=== PATIENT | male | born 1995 | race American Indian/Alaskan Native ===

== ENCOUNTER 2017-06-15 17:00 | Emergency (ER) | payer BC, MEDICAID ==
[2017-06-15 18:20] VITALS: BP 160/101
[2017-06-15 19:09] LABS: Basophils % (Auto) 0.5 % (0.0-1.8); Eosinophils % (Auto) 1.2 % (0.0-4.3); Hematocrit 42.2 % (35.5-45.6); Hemoglobin 14.3 gm/dl (11.8-15.2); Mean Corpuscular HGB Conc 34 % (32-34); Mean Corpuscular Hemoglobin 32 pg (28-32); Mean Corpuscular Volume 93 fl (84-94); Platelet Count 320 K/mm3 (140-440); Red Blood Count 4.55 M/mm3 (3.65-5.03); Red Cell Distribution Width 13.4 % (13.2-15.2); White Blood Count 7.7 K/mm3 (4.5-11.0)
[2017-06-15 19:18] LABS: Urine Drugs of Abuse Note Disclamer
[2017-06-15 19:25] LABS: Anion Gap 21 mmol/L; BUN/Creatinine Ratio 6.36; Blood Urea Nitrogen 7 mg/dL (9-20); Calcium 9.2 mg/dL (8.4-10.2); Carbon Dioxide 25 mmol/L (22-30); Chloride 95.7 mmol/L (98-107); Glucose 78 mg/dL (75-100); Potassium 4.3 mmol/L (3.6-5.0); Sodium 137 mmol/L (137-145)
[2017-06-15 19:32] LABS: Bilirubin,Urine NEG (Negative); Blood,Urine SM (Negative); Ketones,Urine NEG (Negative); Leukocyte Esterase,Urine NEG (Negative); Nitrite,Urine NEG (Negative); Protein,Urine <15 mg/dL mg/dL (Negative); Urobilinogen,Urine < 2.0 mg/dL (<2.0); WBC,Urine < 1.0 /HPF (0.0-6.0)
--- NOTE | 2017-06-15 21:16 | Emergency Department Report ---
HPI - General Chief Complaint: Psych Time Seen by Provider: 06/15/17 20:35 - HPI HPI: This is a 22-year-old Afro-[place]amb[place]ian male presents to the emergency department with his mother with the concern for an exacerbation of his schizoaffective disorder and/or bipolar disorder. The patient has been having some paranoia. The family had to take away his iPhone or access to social media as the patient was fantasizing about interactions with people that he does not know or remotely knows and is having paranoia that they are trying to harm him. He says he does not have any homicidal ideations but did want to get a bat or a gun to defend himself and his family if necessary. He denies any suicidal ideations. He has been hearing voices but denies any visual hallucinations. Patient has been compliant with his medications. He has a psychiatrist, Dr sidhu, and has an appointment on Sunday. He is due to get his next Invega. He and his mother spent all day and [place] trying to get admitted but they said that he did not meet criteria. Mom is working on getting him a "daycare" program while she is at work and she feels that his symptoms are exacerbated when he is left at home alone. ED Past Medical Hx - Past Medical History Hx Psychiatric Treatment: Yes (SCHIZOAFFECTIVE DISORDER / BIPOLAR) Additional medical history: OBESITY - Surgical History Past Surgical History?: No - Social History Smoking Status: Never Smoker Substance Use Type: None - Medications Home Medications: Home Medications Medication Instructions Recorded Confirmed Last Taken Type Paliperidone Palmitate [Invega 156 mg IM QMONTH 06/15/17 06/15/17 1 Month Ago History Sustenna] Propranolol HCl 20 mg PO BID 06/15/17 06/15/17 1 Day Ago History Valproic Acid (As Sodium Salt) 1,000 mg PO QHS 06/15/17 06/15/17 1 Day Ago History [Depakene] Valproic Acid (As Sodium Salt) 250 mg PO DAILY 06/15/17 06/15/17 1 Day Ago History [Depakene] Ziprasidone HCl [Geodon] 80 mg PO QHS 06/15/17 06/15/17 1 Day Ago History clonazePAM [Klonopin] 1 mg PO QHS 06/15/17 06/15/17 1 Day Ago History ED Review of Systems ROS: Stated complaint: NEED INVEGA SYSTENNA 156MS Other details as noted in HPI Comment: All other systems reviewed and negative Constitutional: denies: chills, fever Eyes: denies: eye pain, eye discharge, vision change Respiratory: denies: cough, shortness of breath, wheezing Cardiovascular: denies: chest pain, palpitations Gastrointestinal: denies: abdominal pain, nausea, diarrhea Genitourinary: denies: urgency, dysuria Musculoskeletal: denies: back pain, joint swelling, arthralgia Skin: denies: rash, lesions Neurological: denies: headache, weakness, paresthesias Psychiatric: auditory hallucinations. denies: visual hallucinations, homicidal thoughts, suicidal thoughts Physical Exam - Physical Exam Vital Signs: Vital Signs 06/15/17 18:12 Temperature 98.3 F Pulse Rate 91 H Respiratory 18 Rate Blood Pressure 160/101 O2 Sat by Pulse 99 Oximetry Physical Exam: GENERAL: The patient is well-developed well-nourished. HEENT: Normocephalic. Atraumatic. Extraocular motions are intact. Patient has moist mucous membranes. Pupils equal reactive to light bilaterally. NECK: Supple. Trachea is midline. CHEST/LUNGS: Clear to auscultation. There is no respiratory distress noted. HEART/CARDIOVASCULAR: Regular. There is no tachycardia. There is no gallop rub or murmur. ABDOMEN: Abdomen is soft, nontender. Patient has normal bowel sounds. There is no abdominal distention. SKIN: Skin is warm and dry. NEURO: The patient is awake, alert. The patient is cooperative. The patient has no focal neurologic deficits. The patient has normal speech. MUSCULOSKELETAL: There is no tenderness or deformity. There is no limitation range of motion. There is no evidence of acute injury. PSYCH: Patient has a flat affect. ED Course Vital Signs 06/15/17 18:12 Temperature 98.3 F Pulse Rate 91 H Respiratory 18 Rate Blood Pressure 160/101 O2 Sat by Pulse 99 Oximetry ED Medical Decision Making - Lab Data Result diagrams: 06/15/17 18:24 06/15/17 18:24 - Medical Decision Making 22-year-old male presents with his mother with possible exacerbation of his bipolar disorder and/or schizophrenia. The patient has been having some fantasies or delusions about people on social media and has developed some paranoia that they are trying to harm him. However it is not gotten to the point where he has any desire to seek out these people, and only wants to make sure that he can defend himself if these people come to his home which he does not appear there is any reason why this would happen as there has been no contact between the patient and these people on social media. He denies any suicidal or homicidal ideations. He has occasional auditory hallucinations. No visual hallucinations. The patient is compliant with his medications and the Depakote level appears therapeutic. He is due to get his next Invega shot and see his psychiatrist this coming Sunday. He does not appear to be a candidate to be admitted 1013 as he does not appear to be a danger to himself or others and he is able to complete his activities of daily living despite his psychiatric diagnosis and conditions. Vital signs are stable but does show some mild hypertension. His labs are unremarkable and do not show any etiology of his symptoms. The plan was going to be to have the crisis therapist do an evaluation but the overall plan still was going to be most likely discharged home. However it took multiple hours for crisis to come in and family no longer wants to wait for any further evaluation. Since the patient is not a 1013 he is free to leave and will be discharged accordingly. They've been encouraged to return to the emergency department if there is any worsening of symptoms or any of the criteria for 1013 appears to be fulfilled. They understand and agree to the plan. - Differential Diagnosis schizoaffective, bipolar disorder, schizophrenia, depression Critical Care Time: No Critical care attestation.: If time is entered above; I have spent that time in minutes in the direct care of this critically ill patient, excluding procedure time. ED Disposition Clinical Impression: History of schizoaffective disorder, Paranoia Hypertension Qualifiers: Hypertension type: essential hypertension Qualified Code(s): I10 - Essential ( primary) hypertension Disposition: DC-01 TO HOME OR SELFCARE Is pt being admited?: No Condition: Stable Instructions: Bipolar Disorder (ED), Schizoaffective Disorder (ED), Hypertension (ED) Additional Instructions: Please follow-up with your primary care physician and your psychiatrist as soon as possible. Return to the emergency department with any thoughts of harming yourself or others, worsening of your symptoms, or any acute distress. Referrals: DR BRUCE [Other] - [facility] Time of Disposition: 23:31
== END 2017-06-15 23:44 | disposition home or self-care (01) ==
LOC: EEVIPCON 17:00 → ED 17:00
DX: F22 Delusional disorders (principal); I10 Essential (primary) hypertension; F25.9 Schizoaffective disorder, unspecified; F31.9 Bipolar disorder, unspecified
CPT/HCPCS: 36415; 80048; 80164; 80307; 81001; 85025; 99283; G0480; 80320

== ENCOUNTER 2022-04-10 22:14 | Emergency (ER) | payer BC, MEDICARE ==
[2022-04-10 23:39] LABS: Basophils # (Auto) 0.1 K/mm3 (0.0-0.1); Basophils % (Auto) 0.7 % (0.0-1.8); Eosinophils # (Auto) 0.2 K/mm3 (0.0-0.4); Eosinophils % (Auto) 1.5 % (0.0-4.3); Hematocrit 38.2 % (35.5-45.6); Hemoglobin 12.5 gm/dl (11.8-15.2); Lymphocytes # (Auto) 2.9 K/mm3 (1.2-5.4); Lymphocytes % (Auto) 28.2 % (13.4-35.0); Mean Corpuscular HGB Conc 33 % (32-34); Mean Corpuscular Volume 89 fl (84-94); Monocytes # (Auto) 0.9 K/mm3 (0.0-0.8); Monocytes % (Auto) 8.8 % (0.0-7.3); Platelet Count 379 K/mm3 (140-440); Red Blood Count 4.32 M/mm3 (3.65-5.03); Red Cell Distribution Width 14.1 % (13.2-15.2)
[2022-04-10 23:49] LABS: Calcium 9.1 mg/dL (8.4-10.2)
[2022-04-11 00:18] LABS: Bilirubin,Urine NEG (Negative); Blood,Urine NEG (Negative); Color,Urine Yellow (Yellow); Protein,Urine <15 mg/dL mg/dL (Negative); RBC,Urine < 1.0 /HPF (0.0-6.0); Urobilinogen,Urine < 2.0 mg/dL (<2.0)
[2022-04-11 00:26] LABS: Amphetamine Screen,Urine PRESUMPTIVE NEGATIVE; Benzodiazepines Screen,Urine PRESUMPTIVE NEGATIVE; Cannabinoid Screen,Urine PRESUMPTIVE NEGATIVE; Cocaine Screen,Urine PRESUMPTIVE NEGATIVE; Methadone Screen,Urine PRESUMPTIVE NEGATIVE; Opiate Screen,Urine PRESUMPTIVE NEGATIVE
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
[2022-04-11] MEDS ORDERED: HALOPERIDOL LACTATE 5 MG/1 ML INJ IM ONE (09:45)
[2022-04-11] MEDS ORDERED: LORazepam 2 MG/ML VIAL IM STA (09:46)
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
[2022-04-11] MEDS ORDERED: ZIPRASIDONE MESYLATE 20 MG VIAL IM PRN (13:28)
[2022-04-11] MEDS: DIVALPROEX DR 250 MG TAB PO SCH ×2 (13:50→22:10)
[2022-04-11] MEDS: risperiDONE 1 MG TAB PO SCH (22:10)
[2022-04-12] MEDS: DIVALPROEX DR 250 MG TAB PO SCH (10:12)
[2022-04-12] MEDS: risperiDONE 1 MG TAB PO SCH (10:13)
--- NOTE | 2022-04-12 10:26 | Progress Note ---
Subjective - Reason for Consult Consult date: 04/12/22 Reason for consult: mental health evaluation - Chief Complaint Chief complaint: The patient was seen this morning. He continues to present with flat affect. He endorses auditory hallucinations " voices saying to hurt somebody." REVIEW OF SYSTEMS Constitutional: Negative for weight loss ENT: Negative for stridor Respiratory: Negative for cough or hemoptysis All other systems reviewed and are negative MENTAL STATUS EXAMINATION General Appearance and Behavior: Age appropriate, wearing appropriate clothes, cooperative, polite with questioning, good eye contact, calm, polite Cooperation: cooperative Psychomotor Behavior: Psychomotor normal Mood: calm Affect and affective range: flat Thought Process: circumstantial Thought Content:confused Speech: Normal volume, Regular rate and rhythm Suicidal Ideation: Denies Homicidal Ideation: Denies Hallucination: Auditory Delusions: None Impulse Control: limited Insight and Judgment: Limited Memory: intact Attention: attentive Orientation: Alert and oriented Diagnoses: Schizoaffective Treatment Plan 1013 Continue home meds Risperidone 2mg po BID Liss Sethi 250mg po BID PSYCHOTHERAPY: Supportive psychotherapy provided MEDICAL: Per primary team DELIRIUM PRECAUTIONS: Please re-orient patient frequently, keep lights on during the day, and minimize benzodiazepines and opiates as these medications could worsen patient's confusion. BAILIFF: Per medical team DISPOSITION: Recommend acute psychiatric inpatient treatment. Will follow. Thank you for the consult. Case staffed with Dr. Zee Medications and Allergies Mental Status Exam - Vital signs Last Vital Signs Temp 98.4 F 04/10/22 22:53 Pulse 87 04/11/22 12:03 Resp 16 04/11/22 12:03 BP 105/55 04/11/22 12:03 Pulse Ox 98 04/12/22 04:26
[2022-04-12 10:40] VITALS: BP 126/75
--- NOTE | 2022-04-12 12:07 | Event Note ---
Chart reviewed and vital signs reviewed 27-year-old male currently on 1013 for psychosis. As per notes patient has been accepted to psychiatric facility with transport ETA 1 PM
== END 2022-04-12 13:35 ==
LOC: ED 22:14
DX: F31.9 Bipolar disorder, unspecified (principal); Z20.822 Contact with and (suspected) exposure to COVID-19; Z79.899 Other long term (current) drug therapy
CPT/HCPCS: 36415; 80048; 80307; 81001; 85025; 96372; 99285; J1630; J2060; U0003; 80320; G0480